=== PATIENT | female | born 1985 | race Hispanic/Latino ===

== ENCOUNTER 2019-02-22 08:43 | Emergency (ER) | payer BC, OTHER ==
[2019-02-22] MEDS ORDERED: ONDANSETRON 4 MG/2 ML VIAL ONE (09:13)
[2019-02-22] MEDS ORDERED: NA CHLORIDE 0.9% 1,000 ML ONE (09:13)
[2019-02-22] MEDS ORDERED: MORPHINE 4 MG/ML SYR ONE (09:14)
[2019-02-22 09:22] LABS: Absolute Lymphocytes (CBC) 3.5 K/uL (0.7-4.9); Absolute Monocytes 0.6 K/uL (0.1-1.3); Absolute Neutrophil 4.4 K/uL (1.8-8.0); Basophils % 0.5 % (0-1.3); Eosinophils % 1.3 % (0-4.4); Hematocrit 39.3 % (36.0-45.0); Lymphocytes % 40.6 % (15.3-44.8); MPV 8.6 fL (7.6-11.3); Monocytes % 6.7 % (3.3-12.3); RBC Red Blood Cell Count 4.56 M/uL (3.86-4.86)
[2019-02-22 09:37] LABS: Potassium 4.1 mmol/L (3.5-5.1)
[2019-02-22] MEDS ORDERED: KETOROLAC 30 MG/ML INJ ONE (10:05)
[2019-02-22 10:38] LABS: Urine Bacteria 20-50 /HPF (<20); Urine Culture Reflex Order REFLEXED; Urine RBC TNTC /HPF (NONE SEEN)
--- NOTE | 2019-02-22 10:38 | RAD REPORT ---
EXAM DESCRIPTION: CT - Stone Protocol - 02/22/2019 10:16 am CLINICAL HISTORY: Abdominal pain. Left flank pain COMPARISON: None. TECHNIQUE: Computed axial tomography of the abdomen pelvis was obtained without oral or IV contrast. Lack of IV and oral contrast limits evaluation of solid organs, bowel, and vessels. Coronal reformat marita images were obtained and reviewed. All CT scans are performed using dose optimization technique as appropriate and may include automated exposure control or mA/KV adjustment according to patient size. FINDINGS: Small bilateral renal calculi. Mild left hydronephrosis. 4 millimeter calculus distal left ureter. Hounsfield unit 663 . The liver, spleen, pancreas and adrenals appear grossly normal There is no evidence of diverticulitis. The appendix appears normal IMPRESSION: 4 millimeter calculus distal left ureter resulting in mild left hydronephrosis
[2019-02-22 10:42] LABS: Urine Blood 3+ (NEG); Urine Glucose NEGATIVE (NEG); Urine Protein 2+ (NEG); Urine pH 5.5 (5.0-7.0)
--- NOTE | 2019-02-22 10:55 | ER ---
Nurse's Notes [facility] Name: Yennifer Elder Age: 34 yrs Sex: Female : 1985 Arrival Date: 02/22/2019 Time: 08:47 Bed 16 Private MD: Diagnosis: Calculus of kidney and ureter Presentation: 02/22 08:51 Presenting complaint: Patient states: i woke up this AM with pain on my L lower back hj that moves to my L leg area; denies fever, reports N/V;. Transition of care: patient was not received from another setting of care. Onset of symptoms was February 22, 2019. Risk Assessment: Do you want to hurt yourself or someone else? Patient reports no desire to harm self or others. Initial Sepsis Screen: Does the patient meet any 2 criteria? No. Patient's initial sepsis screen is negative. Does the patient have a suspected source of infection? No. Patient's initial sepsis screen is negative. Care prior to arrival: None. 08:51 Method Of Arrival: Ambulatory 08:51 Acuity: LUISITO 3 hj Triage Assessment: 09:08 General: Appears in no apparent distress. uncomfortable, Behavior is cooperative, hj appropriate for age, crying. Pain: Complains of pain in back and left leg. GI: Reports nausea, vomiting. 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 - Social history:: Smoking status: Patient/guardian denies using tobacco, Patient/guardian denies using alcohol. - Ebola Screening: : Patient negative for fever greater than or equal to 101.5 degrees Fahrenheit, and additional compatible Ebola Virus Disease symptoms Patient denies exposure to infectious person Patient denies travel to an Ebola-affected area in the 21 days before illness onset. Screenin:54 Abuse screen: Denies threats or abuse. Denies injuries from another. Nutritional hj screening: No deficits noted. Tuberculosis screening: No symptoms or risk factors identified. Fall Risk None identified. Assessment: 09:09 GI: Bowel sounds present X 4 quads. Abd is soft and non tender. hj 09:10 General: Appears in no apparent distress. uncomfortable, Behavior is cooperative, hj appropriate for age, crying. Pain: Complains of pain in back. Neuro: Level of Consciousness is awake, alert, obeys commands, Oriented to person, place, time, situation, Appropriate for age. Cardiovascular: Capillary refill < 3 seconds Patient's skin is warm and dry. Respiratory: Airway is patent Respiratory effort is even, unlabored, Respiratory pattern is regular, symmetrical. : No signs and/or symptoms were reported regarding the genitourinary system. EENT: No signs and/or symptoms were reported regarding the EENT system. Derm: No signs and/or symptoms reported regarding the dermatologic system. Musculoskeletal: Reports pain in left leg and back. Vital Signs: 08:54 BP 155 / 97; Pulse 60; Resp 18; Temp 97.6(TE); Pulse Ox 100% on R/A; Weight 104.33 kg; hj Height 5 ft. 6 in. (167.64 cm); 09:24 BP 149 / 94; Pulse 58; Resp 18; Pulse Ox 100% on R/A; hj 10:34 BP 142 / 90; Pulse 59; Resp 18; Pulse Ox 100% on R/A; hj 08:54 Body Mass Index 37.12 (104.33 kg, 167.64 cm) ED Course: 08:47 Patient arrived in ED. mr 08:48 MartinSofy F[facility]C is [facility]. kb 08:48 Sameer Crandall MD is Attending Physician. kb 08:51 Doug Luo, HEATHER is Primary Nurse. hj 08:52 Triage completed. hj 09:05 Initial lab(s) drawn, by dc, sent to lab. Inserted saline lock: 20 gauge in left Blood hj collected. 09:09 Arm band placed on right wrist. hj 09:10 Patient has correct armband on for positive identification. Placed in gown. Bed in low hj position. Call light in reach. Side rails up X2. Adult w/ patient. 09:37 pregs drawn by me and sent to lab. dh3 10:00 Urine collected: clean catch specimen, tea colored. dh3 10:15 CT completed. Patient tolerated procedure well. Patient moved to CT via wheelchair. sj Patient moved back from CT. 10:15 CT Stone Protocol In Process Unspecified. EDMS 10:54 Albert Rios MD is Referral Physician. kb 11:05 No provider procedures requiring assistance completed. IV discontinued, intact, hj bleeding controlled, No redness/swelling at site. Pressure dressing applied. Administered Medications: 08:59 Drug: NS 0.9% 1000 ml Route: IV; Rate: 1000 ml; Site: left antecubital; hj 09:31 Follow up: IV Status: Infusion continued hj 08:59 Drug: Zofran 4 mg Route: IVP; Site: left antecubital; hj 09:31 Follow up: Response: Nausea is decreased hj 08:59 Drug: morphine 4 mg Route: IVP; Site: left antecubital; hj 09:31 Follow up: Response: No adverse reaction hj 10:00 Drug: TORadol 30 mg Route: IVP; Site: left antecubital; hj 10:09 Follow up: Response: No adverse reaction hj Outcome: 10:54 Discharge ordered by MD. kb 11:05 Discharged to home ambulatory, with family. hj 11:05 Condition: stable 11:05 Discharge instructions given to patient, family, Instructed on discharge instructions, follow up and referral plans. medication usage, Demonstrated understanding of instructions, follow-up care, medications, Prescriptions given X 5 11:05 Patient left the ED. Signatures: Dispatcher [employer] EDMS Sofy Salazar, ROVING HAND-C ROVING HAND-Kinza Hall Lenora Machado Doug Mckeon, HEATHER RN Carley Sanchez 3 Corrections: (The following items were deleted from the chart) 09: 08:54 Temp 97.6F Temporal; 104.33 kg; Height 5 ft. 6 in.; BMI: 37.1; conor
--- NOTE | 2019-02-22 10:55 | EDPHYS ---
Physician Documentation [facility] Name: Yennifer Elder Age: 34 yrs Sex: Female : 1985 Arrival Date: 02/22/2019 Time: 08:47 Bed 16 Private MD: ED Physician Sameer Crandall HPI: 02/22 10:26 This 34 yrs old Female presents to ER via Ambulatory with complaints of kb Abdominal Pain, Back Pain, Vomiting. 10:26 The patient has not recently seen a physician. kb 10:27 The patient complains of pain in the left flank. The pain radiates to the left lower kb quadrant. Onset: The symptoms/episode began/occurred just prior to arrival. Modifying factors: The symptoms are alleviated by nothing. the symptoms are aggravated by nothing. Associated signs and symptoms: Pertinent positives: nausea, vomiting, Pertinent negatives: diarrhea, dizziness, dysuria, fever, urinary frequency, headache, hematuria, pain radiating to the lower extremities. Severity of pain: At its worst the pain was moderate in the emergency department the pain is unchanged. The patient has not experienced similar symptoms in the past. 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 - Social history:: Smoking status: Patient/guardian denies using tobacco, Patient/guardian denies using alcohol. - Ebola Screening: : Patient negative for fever greater than or equal to 101.5 degrees Fahrenheit, and additional compatible Ebola Virus Disease symptoms Patient denies exposure to infectious person Patient denies travel to an Ebola-affected area in the 21 days before illness onset. ROS: 10:26 Constitutional: Negative for fever, chills, and weight loss, Cardiovascular: Negative kb for chest pain, palpitations, and edema, Respiratory: Negative for shortness of breath, cough, wheezing, and pleuritic chest pain, MS/Extremity: Negative for injury and deformity, Skin: Negative for injury, rash, and discoloration, Neuro: Negative for headache, weakness, numbness, tingling, and seizure. 10:26 Abdomen/GI: Positive for abdominal pain, nausea and vomiting. 10:26 : Positive for flank pain. Exam: 10:25 Constitutional: This is a well developed, well nourished patient who is awake, alert, kb and in no acute distress. Head/Face: Normocephalic, atraumatic. Chest/axilla: Normal chest wall appearance and motion. Nontender with no deformity. No lesions are appreciated. Cardiovascular: Regular rate and rhythm with a normal S1 and S2. No gallops, murmurs, or rubs. Normal PMI, no JVD. No pulse deficits. Respiratory: Lungs have equal breath sounds bilaterally, clear to auscultation and percussion. No rales, rhonchi or wheezes noted. No increased work of breathing, no retractions or nasal flaring. Skin: Warm, dry with normal turgor. Normal color with no rashes, no lesions, and no evidence of cellulitis. MS/ Extremity: Pulses equal, no cyanosis. Neurovascular intact. Full, normal range of motion. Neuro: Awake and alert, GCS 15, oriented to person, place, time, and situation. Cranial nerves II-XII grossly intact. Motor strength 5/5 in all extremities. Sensory grossly intact. Cerebellar exam normal. Normal gait. 10:25 Abdomen/GI: Inspection: abdomen appears normal, Bowel sounds: normal, in all quadrants, Palpation: soft, in all quadrants, mild abdominal tenderness, in the left lower quadrant. 10:25 Back: CVA tenderness, that is moderate, is noted on the left. Vital Signs: 08:54 BP 155 / 97; Pulse 60; Resp 18; Temp 97.6(TE); Pulse Ox 100% on R/A; Weight 104.33 kg; Height 5 ft. 6 in. (167.64 cm); 09:24 BP 149 / 94; Pulse 58; Resp 18; Pulse Ox 100% on R/A; hj 10:34 BP 142 / 90; Pulse 59; Resp 18; Pulse Ox 100% on R/A; hj 08:54 Body Mass Index 37.12 (104.33 kg, 167.64 cm) MDM: 08:48 Patient medically screened. kb 10:25 Data reviewed: vital signs, nurses notes. Data interpreted: Pulse oximetry: on room air kb is 100 %. Interpretation: normal. 10:54 Counseling: I had a detailed discussion with the patient and/or guardian regarding: the kb historical points, exam findings, and any diagnostic results supporting the discharge/admit diagnosis, lab results, radiology results, the need for outpatient follow up, a family practitioner, a urologist, to return to the emergency department if symptoms worsen or persist or if there are any questions or concerns that arise at home. 02/22 08:55 Order name: CBC with Diff; Complete Time: 09:40 kb 02/22 08:55 Order name: Basic Metabolic Panel; Complete Time: 09:40 kb 02/22 09:31 Order name: Test, Serum; Complete Time: 10:20 hj 02/22 09:56 Order name: Urine Microscopic Only; Complete Time: 10:38 kb 02/22 09:58 Order name: Urine Dipstick--Ancillary (enter results) 02/22 09:58 Order name: Urine Dipstick-Ancillary; Complete Time: 10:53 EDLA 02/22 08:51 Order name: Urine Dipstick-Ancillary (obtain specimen); Complete Time: 09:54 kb 02/22 09:53 Order name: CT Stone Protocol; Complete Time: 10:40 kb 02/22 10:05 Order name: Urine --Ancillary (enter results) 02/22 10:40 Order name: Urine Culture [facility] 02/22 08:55 Order name: Urine Test (obtain specimen); Complete Time: 09:54 kb 02/22 08:55 Order name: IV Start; Complete Time: 08:59 kb Administered Medications: 08:59 Drug: NS 0.9% 1000 ml Route: IV; Rate: 1000 ml; Site: left antecubital; hj 09:31 Follow up: IV Status: Infusion continued hj 08:59 Drug: Zofran 4 mg Route: IVP; Site: left antecubital; hj 09:31 Follow up: Response: Nausea is decreased hj 08:59 Drug: morphine 4 mg Route: IVP; Site: left antecubital; hj 09:31 Follow up: Response: No adverse reaction hj 10:00 Drug: TORadol 30 mg Route: IVP; Site: left antecubital; hj 10:09 Follow up: Response: No adverse reaction Disposition: 17:16 Co-signature as Attending Physician, Sameer Crandall MD. ma2 Disposition: 02/22/19 10:54 Discharged to Home. Impression: Calculus of kidney and ureter. - Condition is Stable. - Discharge Instructions: Kidney Stones, [id number], Dietary Guidelines to Help Prevent Kidney Stones. - Prescriptions for Tylenol- Codeine #3 300-30 mg Oral Tablet - take 1 tablet by ORAL route every 6 hours As needed; 15 tablet. Zofran 4 mg Oral Tablet - take 1 tablet by ORAL route every 6 hours As needed; 20 tablet. Flomax 0.4 mg Oral Capsule, Sust. Release 24 hr - take 1 capsule by ORAL route once daily; 10 capsule. Diclofenac Sodium 75 mg Oral Tablet, Delayed Release (E.C.) - take 1 tablet by ORAL route 2 times per day As needed; 30 tablet. Macrobid 100 mg Oral Capsule - take 1 capsule by ORAL route every 12 hours for 5 days; 10 capsule. - Medication Reconciliation Form, Thank You Letter, Antibiotic Education, Prescription Opioid Use form. - Follow up: Emergency Department; When: As needed; Reason: Worsening of condition. Follow up: Albert Rios MD; When: 2 - 3 days; Reason: Recheck today's complaints. Signatures: Dispatcher [employer] EDMS Sofy Salazar, ELAINE-C MAINTENANCE SHOP LABORER-Doug Wilkes RN RN hj Alzahri, Mohammad, MD MD ma2 Corrections: (The following items were deleted from the chart) 11:05 10:54 02/22/2019 10:54 Discharged to Home. Impression: Calculus of kidney and ureter. hj Condition is Stable. Forms are Medication Reconciliation Form, Thank You Letter, Antibiotic Education, Prescription Opioid Use. Follow up: Emergency Department; When: As needed; Reason: Worsening of condition. Follow up: Albert Rios; When: 2 - 3 days; Reason: Recheck today's complaints. kb
== END 2019-02-22 11:05 | disposition home or self-care (01) ==
LOC: ER 08:43
DX: N20.2 Calculus of kidney with calculus of ureter (principal); Z88.2 Allergy status to sulfonamides
CPT/HCPCS: 36415; 74176; 76377; 80048; 81003; 81015; 81025; 84703; 85025; 87086; 87088; 96361; 96374; 96375; 99284; J2405; J7030

== ENCOUNTER 2019-12-04 14:14 | Emergency (ER) | payer BC ==
[2019-12-04 15:22] LABS: Absolute Lymphocytes (CBC) 2.6 K/uL (0.7-4.9); Basophils % 0.4 % (0-1.3); Hematocrit 35.4 % (36.0-45.0); Lymphocytes % 27.5 % (15.3-44.8); MPV 8.8 fL (7.6-11.3); RBC Red Blood Cell Count 4.06 M/uL (3.86-4.86)
[2019-12-04 15:32] LABS: Potassium 4.1 mmol/L (3.5-5.1)
[2019-12-04 16:14] LABS: Urine Blood 3+ (NEG); Urine Glucose NEGATIVE (NEG); Urine Protein 1+ (NEG); Urine pH 5.5 (5.0-7.0)
--- NOTE | 2019-12-04 17:05 | RAD REPORT ---
EXAM DESCRIPTION: US - Transvaginal OB - 12/04/2019 4:31 pm CLINICAL HISTORY: VAGINAL BLEEDING COMPARISON: No comparisons FINDINGS: A gestational sac is present containing a small embryo within the cervical canal. Based on crown-rump length of 4 mm the gestational age is estimated at 6 weeks. No definitive embryonic cardi ac activity could be seen. The maternal adnexa and ovaries are within normal limits. Normal Doppler blood flow was demonstrated to both ovaries. IMPRESSION: Findings likely representing inevitable spontaneous .
--- NOTE | 2019-12-04 17:22 | ER ---
Nurse's Notes [facility] Name: Yennifer Elder Age: 34 yrs Sex: Female : 1985 Arrival Date: 12/04/2019 Time: 14:17 Bed 5 Private MD: Diagnosis: Threatened Presentation: 12/04 14:23 Risk Assessment: Do you want to hurt yourself or someone else? Patient reports no tw2 desire to harm self or others. Care prior to arrival: None. 14:23 Method Of Arrival: Ambulatory tw2 14:24 Presenting complaint: Patient states: Ellyn had heavy vaginal bleeding that began around sg 0900 this morning with large clumps and bleeding that is bright red, pt states that she had gastric sleeve procedure in 08/06/2019 and has had irregular periods since the procedure but no bleeding as bad as this morning. Transition of care: patient was not received from another setting of care. Onset of symptoms was December 04, 2019. Initial Sepsis Screen: Does the patient meet any 2 criteria? No. Patient's initial sepsis screen is negative. Does the patient have a suspected source of infection? No. Patient's initial sepsis screen is negative. 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 - Coronavirus screen:: The patient has NOT traveled to [place], [place], or [place] in the past 14 days. - Social history:: Smoking status: . - Ebola Screening: : Patient denies exposure to infectious person. Screenin:22 Abuse screen: Denies threats or abuse. Nutritional screening: No deficits noted. tw2 Tuberculosis screening: No symptoms or risk factors identified. Fall Risk None identified. Assessment: 14:30 General: Appears in no apparent distress. uncomfortable, Behavior is calm, cooperative, jl7 appropriate for age. Pain: Complains of pain in suprapubic area Quality of pain is described as crampy. Neuro: Level of Consciousness is awake, alert, obeys commands, Oriented to person, place, time, situation. Cardiovascular: Patient's skin is warm and dry. Respiratory: Airway is patent Respiratory effort is even, unlabored, Respiratory pattern is regular, symmetrical. : Urine is blood tinged, Reports vaginal bleeding that is bright red, with clots. Derm: Skin is pink, warm \T\ dry. 14:35 Reassessment: Provider at bedside. jl7 14:44 Reassessment: Pt unable to provide urine sample at this time. jl7 15:30 Reassessment: SANAZ Gee at bedside discussing UPT results and POC. jl7 16:30 Reassessment: Patient appears in no apparent distress at this time. No changes from 7 previously documented assessment. Patient and/or family updated on plan of care and expected duration. Pain level reassessed. Patient is alert, oriented x 3, equal unlabored respirations, skin warm/dry/pink. 17:15 Reassessment: SANAZ Gee at bedside discussing US results and POC. jl7 Vital Signs: 14:24 BP 111 / 74; Pulse 91; Resp 17; Pulse Ox 100% on R/A; tw2 14:24 Temp 97.9; sg 14:51 BP 110 / 70 Supine; Pulse 70; jl7 14:53 BP 107 / 89 Standing; Pulse 85; jl7 15:30 BP 106 / 74; Pulse 75; Resp 16 S; Pulse Ox 100% on R/A; jl7 16:43 BP 126 / 89; Pulse 85; Resp 17; Pulse Ox 100% on R/A; tw2 ED Course: 14:17 Patient arrived in ED. mr 14:20 Gerard Weber PA is PHCP. [facility] 14:20 Jarvis Nguyen MD is Attending Physician. [facility] 14:20 Yulia Hill RN is Primary Nurse. jl7 14:22 Arm band placed on. tw2 14:23 Bed in low position. Call light in reach. tw2 14:25 Triage completed. sg 15:00 Initial lab(s) drawn, by me, sent to lab. Inserted saline lock: 20 gauge in right jl7 antecubital area, using aseptic technique. Blood collected. 15:38 Quantitative Hcg Sent. jl7 15:38 Urine Dipstick--Ancillary (enter results) Sent. jl7 15:39 Urine --Ancillary (enter results) Sent. jl7 15:39 CBC with Diff Sent. jl7 15:39 Basic Metabolic Panel Sent. jl7 15:39 Abo/rh Typing Sent. 7 17:20 Gilbert Hernandez MD is Referral Physician. [facility] 17:32 No provider procedures requiring assistance completed. IV discontinued, intact, jl7 bleeding controlled, No redness/swelling at site. Pressure dressing applied. Administered Medications: No medications were administered Outcome: 17:20 Discharge ordered by MD. [facility] 17:32 Discharged to home ambulatory. [facility] 17:32 Condition: stable 17:32 Discharge instructions given to patient, family, Instructed on discharge instructions, follow up and referral plans. Demonstrated understanding of instructions, follow-up care. 17:56 Patient left the ED. sg Signatures: Jay Pham, RN RN Gerard Levy PA PA jm Kinza Stone mr Evelyn Larsen, RN RN tw2 Yulia Hill RN RN jl7
--- NOTE | 2019-12-04 17:22 | EDPHYS ---
Physician Documentation [facility] Name: Yennifer Elder Age: 34 yrs Sex: Female : 1985 Arrival Date: 12/04/2019 Time: 14:17 Bed 5 Private MD: ED Physician Jarvis Nguyen HPI: 12/04 14:35 This 34 yrs old Female presents to ER via Ambulatory with complaints of jmm Vaginal Bleeding. 14:35 The patient presents with vaginal bleeding that is. Onset: The symptoms/episode jmm began/occurred acutely. Modifying factors: The symptoms are alleviated by nothing, the symptoms are aggravated by nothing. Associated signs and symptoms: Pertinent positives: vaginal bleeding. This is a 34 year old female with no chronic medical conditions that presents to the ED with complaints of vaginal bleeding which is heavier today. patient states she is passing clots. LMP in July. Patient states unsure on status. . 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 - Coronavirus screen:: The patient has NOT traveled to [place], [place], or [place] in the past 14 days. - Social history:: Smoking status: . - Ebola Screening: : Patient denies exposure to infectious person. ROS: 14:35 Constitutional: Negative for fever, chills, and weight loss, Cardiovascular: Negative jmm for chest pain, palpitations, and edema, Respiratory: Negative for shortness of breath, cough, wheezing, and pleuritic chest pain. 14:35 : Positive for vaginal bleeding. 14:35 All other systems are negative. Exam: 14:35 Constitutional: This is a well developed, well nourished patient who is awake, alert, jmm and in no acute distress. Head/Face: atraumatic. Eyes: EOMI, no conjunctival erythema appreciated ENT: Moist Mucus Membranes Neck: Trachea midline, Supple Chest/axilla: Normal chest wall appearance and motion. Cardiovascular: Regular rate and rhythm. No edema appreciated Respiratory: Normal respirations, no respiratory distress appreciated Abdomen/GI: Non distended, soft Back: Normal ROM Skin: General appearance color normal MS/ Extremity: Moves all extremities, no obvious deformities appreciated, no edema noted to the lower extremities Neuro: Awake and alert, normal gait Psych: Behavior is normal, Mood is normal, Patient is cooperative and pleasant Vital Signs: 14:24 BP 111 / 74; Pulse 91; Resp 17; Pulse Ox 100% on R/A; tw2 14:24 Temp 97.9; sg 14:51 BP 110 / 70 Supine; Pulse 70; jl7 14:53 BP 107 / 89 Standing; Pulse 85; jl7 15:30 BP 106 / 74; Pulse 75; Resp 16 S; Pulse Ox 100% on R/A; jl7 16:43 BP 126 / 89; Pulse 85; Resp 17; Pulse Ox 100% on R/A; tw2 MDM: 14:35 Patient medically screened. carlene 17:18 Data reviewed: vital signs, nurses notes. Counseling: I had a detailed discussion with carlene the patient and/or guardian regarding: the historical points, exam findings, and any diagnostic results supporting the discharge/admit diagnosis, lab results, radiology results, the need for outpatient follow up, to return to the emergency department if symptoms worsen or persist or if there are any questions or concerns that arise at home. ED course: Patient is alert and non toxic in appearance in the ED. H/H normal. Patient is advised to follow up ASSEMBLY INSPECTOR for further evaluation. patient understood and agrees with the plan of care. . 12/04 14:43 Order name: Abo/rh Typing [facility] 12/04 14:43 Order name: Basic Metabolic Panel [facility] 12/04 14:43 Order name: CBC with Diff [facility] 12/04 15:02 Order name: Quantitative Hcg 12/04 15:26 Order name: Urine Dipstick--Ancillary (enter results) 12/04 15:26 Order name: Urine --Ancillary (enter results) 12/04 15:28 Order name: US 1st Trimest Single 1st Fetus [facility] 12/04 15:33 Order name: Basic Metabolic Panel; Complete Time: 15:34 [facility] 12/04 15:37 Order name: CBC with Automated Diff; Complete Time: 15:38 [facility] 12/04 15:44 Order name: ABO/RH typing; Complete Time: 15:45 [facility] 12/04 15:48 Order name: HCG, Quantitative; Complete Time: 15:50 [facility] 12/04 16:15 Order name: Urine --Ancillary; Complete Time: 16:20 [facility] 12/04 16:15 Order name: Urine Dipstick-Ancillary; Complete Time: 16:20 [facility] 12/04 17:41 Order name: ABO/RH no charge; Complete Time: 17:46 [facility] 12/04 14:43 Order name: Urine Test (obtain specimen); Complete Time: 15:34 [facility] 12/04 14:43 Order name: IV Saline Lock; Complete Time: 15:38 [facility] 12/04 14:43 Order name: Labs collected and sent; Complete Time: 15:38 [facility] 12/04 14:43 Order name: NPO; Complete Time: 14:44 [facility] 12/04 14:43 Order name: Urine Dipstick-Ancillary (obtain specimen); Complete Time: 15:35 [facility] 12/04 14:43 Order name: Orthostatics; Complete Time: 15:30 [facility] 12/04 15:44 Order name: Labs - recollect needed: recollect abo/rh (no charge); Complete Time: 16:48 12/04 17:08 Order name: US; Complete Time: 17:18 [facility] Administered Medications: No medications were administered Disposition: 17:56 Co-signature as Attending Physician, Jarvis Nguyen MD. rn Disposition: 12/04/19 17:20 Discharged to Home. Impression: Threatened . - Condition is Stable. - Discharge Instructions: Threatened Miscarriage. - Medication Reconciliation Form, Thank You Letter, Antibiotic Education, Prescription Opioid Use, Work release form, Family Work Release form. - Follow up: Gilbert Hernandez MD; When: 2 - 3 days; Reason: Recheck today's complaints, Continuance of care, Re-evaluation by your physician. Signatures: Dispatcher [employer] [facility] Bekah Baltazar Steven, HEATHER RN Gerard Levy PA PA jmm Nieto, Roman, MD MD rn Wise, Tara, RN RN tw2 Corrections: (The following items were deleted from the chart) 17:56 17:20 12/04/2019 17:20 Discharged to Home. Impression: Threatened . Condition sg is Stable. Forms are Medication Reconciliation Form, Thank You Letter, Antibiotic Education, Prescription Opioid Use. Follow up: Gilbert Hernandez; When: 2 - 3 days; Reason: Recheck today's complaints, Continuance of care, Re-evaluation by your physician. carlene
[2019-12-04 18:27] VITALS: TEMP 97.9; O2SAT 100
[2019-12-04 18:30] VITALS: BP 126/89
== END 2019-12-04 17:56 | disposition home or self-care (01) ==
LOC: ER 14:14
DX: O20.0 Threatened abortion (principal); Z3A.01 Less than 8 weeks gestation of pregnancy; Z88.2 Allergy status to sulfonamides
CPT/HCPCS: 36415; 76817; 80048; 81003; 81025; 84702; 85025; 86900; 86901; 99283